=== PATIENT | female | born 1940 | race Caucasian/White ===

== ENCOUNTER 2018-01-21 18:10 | Inpatient (IN) | payer MEDICARE, OTHER ==
--- NOTE | 2018-01-21 18:26 | ED Physician Chart ---
ED Chief Complaint/HPI - Patient Information Date Seen:: 01/21/18 Time Seen:: 18:15 Chief Complaint:: increased depression History of Present Illness:: Patient has come here by ambulance for possible admission to [facility] because of increased depression lately. Patient denies being depressed but she is confused. Allergies:: Allergies Allergy/AdvReac Type Severity Reaction Status Date / Time No Known Allergies Allergy Verified 06/10/17 23:18 Historian:: Patient Review:: Transfer documents Reviewed ED Review of Systems - Review of Systems General/Constitutional: No fever, No chills, No weight loss, No weakness, No diaphoresis, No edema, No loss of appetite Skin: No skin lesions, No rash, No bruising Head: No headache, No light-headedness Eyes: No loss of vision, No pain, No diplopia ENT: No earache, No nasal drainage, No sore throat, No tinnitus Neck: No neck pain, No swelling, No thyromegaly, No stiffness, No mass noted Cardio Vascular: No chest pain, No palpitations, No PND, No orthopnea, No edema Pulmonary: No SOB, No cough, No sputum, No wheezing GI: No nausea, No vomiting, No diarrhea, No pain, No melena, No hematochezia, No constipation, No hematemesis G/U: No dysuria, No frequency, No hematuria Musculoskeletal: No bone or joint pain, No back pain, No muscle pain Endocrine: No polyuria, No polydipsia Psychiatric: Prior psych history, Depression, No anxiety, No suicidal ideation Hematopoietic: No bruising, No lymphadenopathy Allergic/Immuno: No urticaria, No angioedema Neurological: No syncope, No focal symptoms, No weakness, No paresthesia, No headache, No seizure, No dizziness, No confusion, No vertigo ED Past Medical History - Past Medical History Past Medical History: HTN, Other (atrial fibrillation; bipolar; insomnia; depression) Family History: Heart disease, Diabetes [place] Social History: Non Smoker (patient quit smoking 2-3 months ago; she occasionally consumes alcohol), Alcohol, Care Facility Surgical History: Hysterectomy Psychiatricy History: Depression Medication: Reviewed Family Medical History - Family Member Mother History Unknown: Yes ED Physical Exam - Physical Examination General/Constitutional: Awake, Well-developed, well-nourished, Alert, No distress Other Gen/Cons comments:: Patient is confused; she does not know the year Head: Atraumatic Eyes: Lids, conjuctiva normal, PERRL Skin: Nl inspection, No rash, No skin lesions, No ecchymosis, Well hydrated, No lymphadenopathy ENMT: External ears, nose nl, Nasal exam nl Other ENMT comments:: Edentulous with upper dentures Neck: No nuchal rigidity Respiratory: Nl effort/Exclusion, Clear to Auscultation, No Wheeze/Rhonchi/Rales Cardio Vascular: RRR, No murmur, gallop, rubs, NL S1 S2 GI: No tenderness/rebounding/guarding, No organomegaly, No hernia, Normal BS's Other Extremities comments:: Arthritis fingers Neuro/Psych: No focal deficits ED Labs/Radiology/EKG Results - Lab Results Results: Abnormal Lab Results 01/21/18 01/21/18 18:42 18:42 WBC 7.1 RBC 4.56 Hgb 14.0 Hct 42.6 MCV 93.5 MCH 30.7 MCHC Differential 32.8 RDW 13.5 Plt Count 253 MPV 7.9 Neutrophils % 80.9 H Lymphocytes % 10.2 L Monocytes % 7.9 Eosinophils % 0.6 Basophils % 0.4 Sodium 140 Potassium 4.2 Chloride 107 Carbon Dioxide 24.0 Anion Gap 13.2 BUN 26 H Creatinine 0.8 Est GFR ( Amer) TNP Est GFR (Non-Af Amer) TNP BUN/Creatinine Ratio 32.5 Glucose 136 H Calcium 9.9 Total Bilirubin 0.4 AST 21 ALT 18 Alkaline Phosphatase 90 Total Protein 6.9 Albumin 3.7 Globulin 3.2 Albumin/Globulin Ratio 1.2 Triglycerides 165 H Cholesterol 208 H LDL Cholesterol Direct 114 HDL Cholesterol 68 - EKG Interpretations Rate & Rhythm: atrial fibrillation with a rate of 91 [place]: borderline left axis deviation Comments:: 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 Is Septic Shock (SBP<90, OR Lactate>4 mmol\L) present?: No ED Reassessment (Disposition) - Reassessment Reassessment:: Patient's cardiac rhythm is atrial fibrillation but she has a history of the same and her heart rate is controlled at 91 Reassessment Condition:: Unchanged - Diagnosis Diagnosis:: Dementia with agitation; atrial fibrillation - Patient Disposition Admitted to:: [facility] Admitting Medical Physician:: Romel Spicer Admitting Psych Physician:: Vibha Stevenson Condition at Disposition:: Stable, Unchanged
[2018-01-21 19:01] LABS: % BASOPHILS 0.4 % (0.0-2.0); % EOSINOPHILS 0.6 % (0.0-5.0); % LYMPHOCYTES 10.2 % (20.0-50.0); % MONOCYTES 7.9 % (2.0-10.0); % NEUTROPHILS 80.9 % (40.0-80.0); HEMATOCRIT 42.6 % (41.0-60); LYMPHOCYTE ABSOLUTE 0.7 Th/cmm (1.5-3.0); MEAN CELL VOLUME 93.5 fl (81-100); MEAN CORPUSCULAR HEMOGLOBIN 30.7 pg (27.0-31.0); MEAN CORPUSCULAR HGB CONC 32.8 pg (28.0-36.0); MEAN PLATELET VOLUME 7.9 fl; MONOCYTE ABSOLUTE 0.6 Th/cmm (0.3-1.0); NEUTROPHILE ABSOLUTE 5.8 Th/cmm (1.8-8.0); PLATELET COUNT 253 Th/cmm (150-400); RED BLOOD COUNT 4.56 Mil/cmm (3.80-5.20); RED CELL DISTRIBUTION WIDTH 13.5 % (11.5-20.0); WHITE BLOOD COUNT 7.1 Th/cmm (4.8-10.8)
[2018-01-21 19:10] LABS: ALB/GLOB RATIO 1.2 (1.0-1.8); ALBUMIN 3.7 gm/dL (3.7-5.3); ALKALINE PHOSPHATASE 90 U/L (34-104); ANION GAP 13.2 (7.0-16.0); BILIRUBIN,TOTAL 0.4 mg/dL (0.3-1.0); BUN - UREA NITROGEN 26 mg/dL (7-25); CALCIUM SERUM 9.9 mg/dL (8.6-10.3); CHLORIDE 107 mEq/L (98-107); CHOLESTEROL 208 mg/dL (<200); CREATININE - SERUM 0.8 mg/dL (0.6-1.2); GLUCOSE 136 mg/dL (70-105); HDL -HIGH DENSITY LIPOPROTEIN 68 mg/dL (23-92); POTASSIUM SERUM 4.2 mEq/L (3.5-5.1); SGOT 21 U/L (13-39); SGPT/ALT 18 U/L (7-52); SODIUM SERUM 140 mEq/L (136-145); TOTAL PROTEIN,SERUM 6.9 gm/dL (6.0-8.3); TRIGLYCERIDES 165 mg/dL (<150)
[2018-01-21 20:24] VITALS: BP 114/84
[2018-01-21] MEDS ORDERED: Magnesium Hydroxide (MOM) 30 mL UDC PO PRN (20:34)
[2018-01-21] MEDS ORDERED: Promethazine DM 6.25/15mg-5mL 5 ML SYR PO PRN (20:34)
[2018-01-21] MEDS ORDERED: Maalox 30 mL Cup PO PRN (20:34)
[2018-01-21] MEDS ORDERED: Hydrocodone/APAP 10 mg/325 mg Tab PO PRN (20:34)
[2018-01-21] MEDS: Atorvastatin Calcium 10 MG TAB PO SCH (22:14)
[2018-01-22] MEDS: Aspirin 81mg Chewable Tab PO SCH (09:02)
[2018-01-22] MEDS: Multivitamin Tab PO SCH (09:02)
[2018-01-22] MEDS: Escitalopram Oxalate 5 mg Tab PO SCH (09:02)
[2018-01-22] MEDS: Atorvastatin Calcium 10 MG TAB PO SCH (21:07)
--- NOTE | 2018-01-23 03:00 | Psychiatric Evaluation ---
DATE OF SERVICE: 01/22/2018 PSYCHIATRIC EVALUATION AND EXAMINATION IDENTIFYING DATA: The patient is a 77-year-old woman, resident of [facility]. Information was obtained by directly interviewing the patient as well as reviewing the admission papers and these are reliable. JUSTIFICATION FOR HOSPITALIZATION: The patient is admitted on a voluntary basis in view of her depression. CHIEF COMPLAINT: "I'm feeling depressed, I do not know what to do." HISTORY OF PRESENT ILLNESS: This is the second psychiatric hospitalization to [facility] for this patient, who was hospitalized under my care in 06/2017. The patient is reported to have been getting extremely depressed for the past couple of weeks and has been neglecting herself and hence the patient has been referred over here for further stabilization because the patient could not be taken care of at a lower level of care. Chart was reviewed. The patient is interviewed. At the time of the evaluation, the patient has been reported to be on the escitalopram 5 mg on a daily basis and Seroquel 25 mg. The patient is reporting that the medications are not much of any help to her. PAST PSYCHIATRIC HISTORY: Please refer to the above. MEDICAL HISTORY AND PHYSICAL EXAMINATION: Requested to be done by Dr. Spicer. SUBSTANCE ABUSE HISTORY: None. PHYSICAL OR SEXUAL ABUSE HISTORY: None. LEGAL PROBLEMS: None at this time. STRENGTH AND ASSETS: The patient is motivated. MENTAL STATUS EXAMINATION: The patient is a 77-year-old woman, looking her stated age, superficially cooperative. Eye contact is poor at this time. Mood is noted to be depressed. Affect is constricted. The patient has been able to provide the information and the patient is stating that she could not figure it out why she is getting depressed, maybe she is thinking that maybe this is the holidays that is making her to be depressed. The patient is reported to have a supportive family, particularly son and daughter. The patient is alert and awake if she is in the hospital. Short-term memory is noted to be poor. Long-term memory seems to be intact. Sleep and appetite are noted to be poor. The patient is denying any command hallucinations. No visual hallucinations are reported at this time. DIAGNOSTIC IMPRESSION: AXIS I: Major depressive disorder, recurrent and moderate. AXIS II: None. AXIS III: As per Dr. Spicer. IMMEDIATE TREATMENT PLAN: The patient is going to be observed on inpatient unit, provided with supportive psychotherapy. The patient is going to be closely monitored. Once stabilized, the patient is going to be discharged to self to be followed up on an outpatient basis. JOB# [id number]
[2018-01-23] MEDS: Multivitamin Tab PO SCH (09:37)
[2018-01-23] MEDS: Aspirin 81mg Chewable Tab PO SCH (09:38)
[2018-01-23] MEDS: Escitalopram Oxalate 5 mg Tab PO SCH (09:38)
--- NOTE | 2018-01-23 12:57 | Progress Notes ---
DATE: 01/23/2018 SUBJECTIVE: Staff was spoken to. The patient is interviewed. Mood is noted to be irritable. Affect is constricted. The patient is isolative and withdrawn. Coping skills are noted to be still poor. No side effects to the medications are noted. The patient is currently on Lexapro and Seroquel and has been able to tolerate the medication. ASSESSMENT: The patient is still paranoid and depressed. PLAN: To continue the patient with the supportive therapy and followup the patient up. JOB# [id number]
[2018-01-23] MEDS: Atorvastatin Calcium 10 MG TAB PO SCH (21:59)
[2018-01-24] MEDS: Multivitamin Tab PO SCH (08:17)
[2018-01-24] MEDS: Escitalopram Oxalate 5 mg Tab PO SCH (08:17)
[2018-01-24] MEDS: Aspirin 81mg Chewable Tab PO SCH (08:17)
--- NOTE | 2018-01-24 12:39 | Consultation ---
DATE OF CONSULTATION: 01/23/2018 REASON FOR CONSULT: Internal Medicine coverage. HISTORY OF PRESENT ILLNESS: This is a 77-year-old female with past medical history of essential hypertension, who was brought in because of worsening depression. A few days prior to admission, the patient was noted to have neglected herself. A few hours prior to admission, her depression has worsened and she was brought to the [facility]. PAST MEDICAL HISTORY: 1. Essential hypertension. 2. Controlled AFib. 3. Bipolar disorder. 4. Dyslipidemia. CURRENT MEDICATIONS: She is currently on acetaminophen, aspirin, atorvastatin, bisacodyl, citalopram, gabapentin, lisinopril, lorazepam, magnesium hydroxide, multivitamins, prednisone, promethazine, quetiapine, zolpidem. ALLERGIES: No known drug allergies. SOCIAL AND FAMILY HISTORY: I was not able to obtain from the patient because she is nonverbal at the present time. REVIEW OF SYSTEMS: Again, I was not able to decipher from the patient. PHYSICAL EXAMINATION: GENERAL: The patient is arousable, not in any form of distress. VITAL SIGNS: Her blood pressure is 104/72, pulse 81, temperature 97.9 degrees. SKIN: Good turgor, warm, no rash, no jaundice appreciated. HEENT: Head: Normocephalic, atraumatic. Eyes: Extraocular muscles intact. Pupils equal, round, reactive to light and accommodates. Anicteric sclerae. Pale conjunctivae. Nose: Midline nasal septum. Mouth: Moist mucosa. Poor dentition. NECK: Supple, no adenopathy, no bruits. CHEST AND CARDIOVASCULAR: Regular rhythm. S1, S2. No rub, no murmur appreciated. Lungs equal expansion. Clear to auscultation without any wheeze. BREAST: Symmetrical without any discharge. ABDOMEN: Flat, soft, positive for bowel sounds. EXTREMITIES: No evidence of any edema nor cyanosis. NEUROLOGIC: The patient is awake with voluntary movements of all of her extremities. IMPRESSION: 1. Essential hypertension. 2. Major depression. 3. Controlled atrial fibrillation. 4. Bipolar disorder. 5. Dyslipidemia. 6. Peripheral neuropathy. PLAN: 1. Continue with psychotic medications and support. 2. Maintain antidepressants. 3. Continue with blood pressure meds to maintain adequate control of blood pressure. 4. Continue on statins. Thank you, Dr. Stevenson for this consult. We will follow the patient closely with you. JOB# [id number]
--- NOTE | 2018-01-24 20:49 | Progress Notes ---
DATE: 01/24/2018 PSYCHIATRIC PROGRESS NOTE SUBJECTIVE: Staff was spoken to. The patient is interviewed. Mood is noted to be irritable. Affect is constricted. The patient is reporting that she is feeling very confused and depressed and could not figure it out what she could do. No side effects to the medications are noted. The patient is currently on Lexapro 5 mg. Plan to increase it to 10 mg in view of her depression and closely monitor the patient. The patient is being encouraged to participate in the groups and verbalize the concerns rather than to act out. ASSESSMENT: The patient is still confused and demented and getting easily upset. PLAN: To continue the patient with Seroquel and Lexapro and closely monitor the patient's behavior. The patient is not ready to be discharged to a lower level of care yet. JOB# [id number]
[2018-01-24] MEDS: Atorvastatin Calcium 10 MG TAB PO SCH (21:00)
[2018-01-25] MEDS: Multivitamin Tab PO SCH (08:44)
[2018-01-25] MEDS: Aspirin 81mg Chewable Tab PO SCH (08:45)
[2018-01-25 11:25] LABS: % BASOPHILS 0.2 % (0.0-2.0); % EOSINOPHILS 1.8 % (0.0-5.0); % MONOCYTES 7.8 % (2.0-10.0); % NEUTROPHILS 81.2 % (40.0-80.0); EOSINOPHILE ABSOLUTE 0.1 Th/cmm (0.1-0.4); HEMATOCRIT 43.2 % (41.0-60); HEMOGLOBIN 14.4 gm/dL (12-16); LYMPHOCYTE ABSOLUTE 0.7 Th/cmm (1.5-3.0); MEAN CELL VOLUME 92.8 fl (81-100); MEAN CORPUSCULAR HEMOGLOBIN 30.9 pg (27.0-31.0); MEAN CORPUSCULAR HGB CONC 33.3 pg (28.0-36.0); MONOCYTE ABSOLUTE 0.6 Th/cmm (0.3-1.0); NEUTROPHILE ABSOLUTE 6.9 Th/cmm (1.8-8.0); PLATELET COUNT 229 Th/cmm (150-400); RED BLOOD COUNT 4.66 Mil/cmm (3.80-5.20); RED CELL DISTRIBUTION WIDTH 13.4 % (11.5-20.0); WHITE BLOOD COUNT 8.3 Th/cmm (4.8-10.8)
[2018-01-25 11:47] LABS: ANION GAP 12.4 (7.0-16.0); BUN - UREA NITROGEN 24 mg/dL (7-25); CALCIUM SERUM 9.8 mg/dL (8.6-10.3); CARBON DIOXIDE 28.4 mEq/L (21.0-31.0); CHLORIDE 105 mEq/L (98-107); CHOLESTEROL 192 mg/dL (<200); CREATININE - SERUM 0.9 mg/dL (0.6-1.2); GLUCOSE 89 mg/dL (70-105); HDL -HIGH DENSITY LIPOPROTEIN 63 mg/dL (23-92); POTASSIUM SERUM 3.8 mEq/L (3.5-5.1); SODIUM SERUM 142 mEq/L (136-145); TRIGLYCERIDES 154 mg/dL (<150)
[2018-01-25] MEDS: Atorvastatin Calcium 10 MG TAB PO SCH (20:40)
--- NOTE | 2018-01-26 00:09 | Progress Notes ---
DATE: 01/25/2018 PSYCHIATRIC PROGRESS NOTE SUBJECTIVE: Staff was spoken to. The patient is interviewed. Mood is noted to be irritable. Affect is constricted. The patient is still confused and could not figure it out why she has been in here and has been trying to figure it out what hospital is this. The patient has no insight into her illness. ASSESSMENT: The patient is still depressed and paranoid. PLAN: To continue the patient with the current medications. I encouraged the patient to verbalize the concerns rather than to act out. JOB# [id number]
--- NOTE | 2018-01-26 03:19 | Consultation ---
DATE OF CONSULTATION: 01/23/2018 REFERRING PHYSICIAN: Vibha Stevenson M.D. TYPE OF CONSULTATION: Psychology. HISTORY OF PRESENT ILLNESS: The patient is a 77-year-old female. The patient is a resident of [facility]. The following is by record review and by the patient's self-report. The patient is being admitted due to increased depression. Upon interview, the patient states that she is feeling depressed and does not know what to do. When asked to rate her depression on a scale of 0-10, 0 meaning not depressed, 10 meaning depressed and suicidal, the patient rated her depression as a 5 or 6. The staff at the patient's facility reported that the patient has been getting more depressed over the last 2-3 weeks with a decline in self-care. The patient denied any suicidal ideation, plan or intention at the time of this clinical interview. PAST MEDICAL HISTORY: Please see history and physical by Dr. Spicer. PAST PSYCHIATRIC HISTORY: The patient has a history of major depression. She is under the care of a psychiatrist at her facility. The patient has previous hospitalizations. SUBSTANCE ABUSE HISTORY: None. Unremarkable. PSYCHOSOCIAL HISTORY: The patient did not answer questions about occupational or educational history. The patient states she is a [employer]. The patient states she has many friends at her alf placement. She states her son and daughter are very involved in her care. The patient denied any history of physical or sexual abuse or any current legal problems. MENTAL STATUS EXAMINATION: The patient appears to be her stated age. The patient's attitude is cooperative. Eye contact is fair. Mood is depressed, [id number]. Affect is mood congruent and reactive. Thought process shows to be linear with a normal pattern of association. The patient states that she feels confused at times and is becoming more depressed. The patient was having difficulty identifying the source of her depression or reasons for her depression. The patient's speech is spontaneous. The patient denied any auditory or visual hallucinations or any delusions. The patient denies any suicidal ideation, plan or intention. Behavior has been compliant with her care and treatment. Impulse control is intact. Concentration is fair. Sensorium is alert and oriented to person and place. Immediate memory is intact. Short-term memory is moderately impaired. Long-term memory seems to be mildly impaired. The patient did not participate in the interpretation of proverbs. Insight is fair to poor. Judgment is compromised. DIAGNOSTIC IMPRESSION: AXIS I: Major depressive disorder, recurrent, moderate. AXIS II: Deferred. AXIS III: Per Dr. Spicer. TREATMENT PLAN: The patient has been seen by Dr. Stevenson for psychiatric evaluation and for the management of the patient's psychotropic medications. We will provide supportive psychotherapy to include cognitive behavioral therapy to reduce the patient's depression. We will introduce coping strategies and skills for phase of life issues. The patient verbally contracted for safety. We will continue to provide supportive therapy throughout the patient's hospital stay. Thank you, Dr. Stevenson, for this consult and the opportunity to participate in this patient's care. JOB# [id number]
[2018-01-26] MEDS: Aspirin 81mg Chewable Tab PO SCH (08:20)
[2018-01-26] MEDS: Multivitamin Tab PO SCH (08:20)
--- NOTE | 2018-01-26 08:59 | Diagnostic Imaging Report ---
Bilateral lower extremity DVT study HISTORY: Vascular disease COMPARISON: None Technique: Longitudinal and transverse sonographic images of the bilateral lower extremity veins were obtained with doppler analysis. FINDINGS: There is normal compressibility, augmentation and phasicity of the bilateral common femoral, superficial femoral, popliteal, and posterior tibial veins. No thrombus is visualized. IMPRESSION: No evidence of thrombus within the bilateral lower extremity veins.
--- NOTE | 2018-01-26 09:11 | Diagnostic Imaging Report ---
Bilateral lower extremity arterial Doppler study HISTORY: Peripheral vascular disease COMPARISON: Previous bilateral lower arterial Doppler on 06/16/2017 Technique: Longitudinal and transverse sonographic images of the bilateral lower extremity arteries were obtained with doppler analysis. FINDINGS: Exam of the right side demonstrates moderate to severe atherosclerotic vascular disease with monophasic waveform seen within the right tibialis anterior and dorsalis pedis arteries with decreased velocities at these regions. Right STEPHANY 1.0 Exam of the left side demonstrates moderate to severe atherosclerotic vascular disease with primarily biphasic waveforms noted. The left dorsalis pedis artery was not visualized. Left STEPHANY 0.9 IMPRESSION: Moderate to severe bilateral atherosclerotic vascular disease. The left dorsalis pedis artery was not identified. Please correlate with clinical findings. If necessary, follow-up exam such as CT angiography may be obtained for further assessment.
[2018-01-26] MEDS: Atorvastatin Calcium 10 MG TAB PO SCH (21:14)
--- NOTE | 2018-01-27 01:48 | Progress Notes ---
DATE: 01/26/2018 SUBJECTIVE: Staff was spoken to. The patient is interviewed. Mood is noted to be depressed. Affect is constricted. Coping skills at this time are noted to be still poor. Insight and judgment are also to be still impaired. No side effects to the medications are noted. The patient has been having difficult time to cope with the stress. ASSESSMENT: The patient is still depressed and demented. PLAN: To continue the patient with the supportive therapy and followup. JOB# [id number]
[2018-01-27] MEDS: Aspirin 81mg Chewable Tab PO SCH (08:42)
[2018-01-27] MEDS: Multivitamin Tab PO SCH (08:43)
[2018-01-27] MEDS: Atorvastatin Calcium 10 MG TAB PO SCH (21:12)
--- NOTE | 2018-01-28 02:37 | Progress Notes ---
DATE: 01/27/2018 PSYCHIATRIC PROGRESS NOTE SUBJECTIVE: Staff was spoken to. The patient is interviewed. Mood is noted to be irritable. Affect is constricted. The patient is very confused. The patient has been having difficult time to cope with the unit structure. The patient has been pacing with the wheelchair on the unit. No side effects to the medications are noted. The patient is currently on Seroquel 25 mg at bedtime and is also receiving the Lexapro 10 mg during the daytime. ASSESSMENT: The patient is still depressed and psychotic. PLAN: To continue the patient with the supportive therapy, encouraged the patient to verbalize the concerns rather than to act out. JOB# [id number]
[2018-01-28] MEDS: Aspirin 81mg Chewable Tab PO SCH (08:24)
[2018-01-28] MEDS: Multivitamin Tab PO SCH (08:26)
[2018-01-28] MEDS: Atorvastatin Calcium 10 MG TAB PO SCH (21:18)
[2018-01-29] MEDS: Aspirin 81mg Chewable Tab PO SCH (08:29)
[2018-01-29] MEDS: Multivitamin Tab PO SCH (08:29)
--- NOTE | 2018-01-29 09:59 | Progress Notes ---
DATE: 01/28/2018 SUBJECTIVE: Staff was spoken to. The patient is interviewed. Mood is noted to be anxious. Affect is appropriate. The patient's insight and judgment are noted to be improving. Impulse control is noted to be fair. No side effects to the medications are noted. No doubt the patient has been perseverating and has been asking when she is going to be leaving. No major behavioral problems are reported at this time. The patient is currently on 25 mg of Seroquel at nighttime and 10 mg of Lexapro. No major behavioral problems are noted. ASSESSMENT: The patient is stabilizing. PLAN: To continue the patient with the supportive therapy. If the patient is doing fairly well possibly the patient is going to be discharged tomorrow for followup on outpatient basis. JOB# [id number]
--- NOTE | 2018-01-29 23:48 | Progress Notes ---
DATE: 01/29/2018 SUBJECTIVE: Staff was spoken to. The patient is interviewed. Mood is noted to be anxious. Affect is appropriate. The patient is not suicidal or homicidal. Motivated for treatment. No psychotic symptoms are noted. The patient has been able to verbalize the concerns rather than to act out. ASSESSMENT: The patient is stabilizing. PLAN: To discharge the patient today for followup on outpatient basis. [facility]# [id number]
== END 2018-01-29 16:49 | DRG 885 ==
LOC: ER 18:10 → GERO 19:32
PROVIDERS: ADMIT Psychiatry & Neurology Psychiatry; ATTEND Psychiatry & Neurology Psychiatry
DX: F33.1 Major depressive disorder, recurrent, moderate (principal); F03.91 Unspecified dementia, unspecified severity, with behavioral disturbance; I10 Essential (primary) hypertension; I48.91 Unspecified atrial fibrillation; E78.5 Hyperlipidemia, unspecified; E11.42 Type 2 diabetes mellitus with diabetic polyneuropathy; Z83.3 Family history of diabetes mellitus; Z82.49 Family history of ischemic heart disease and other diseases of the circulatory system; Z87.891 Personal history of nicotine dependence; Z90.710 Acquired absence of both cervix and uterus
CPT/HCPCS: 36415-UA; 80048-TC; 80053-TC; 80061-TC; 82948-90; 83036-90; 83735-TC; 84443-TC; 85025-TC; 86592-TC; 93005; 93925-TC; 93970-TC-50; G0410; Z7610